=== PATIENT | male | born 1960 | race Caucasian/White ===

== ENCOUNTER 2023-07-15 11:05 | Day surgery (SDC) | payer OTHER ==
[~2023-07-15] VITALS: Ht 172.7 cm; Wt 110.7 kg
[~2023-07-15 11:05] MED LIST: ATOR40TA75 PO; CYCL-707 PO; METF10004 PO; THERTAB52 PO
[2023-07-15] MEDS: NS 1,000 ML IV ONE (12:10)
[2023-07-15] MEDS ORDERED: propofoL 200 MG/20 ML VIAL As Ordered ONE (12:20)
[2023-07-15] MEDS ORDERED: LIDOCAINE 2% 100MG/5ML SDV (FOR ANES.) As Ordered ONE (12:35)
[2023-07-15 12:44] VITALS: TEMP 96.5
[2023-07-15 13:00] VITALS: BP 128/81; O2SAT 95
== END 2023-07-15 13:09 | disposition home or self-care (01) ==
LOC: M OPP 11:05
PROVIDERS: ATTEND Internal Medicine Gastroenterology
DX: Z12.11 Encounter for screening for malignant neoplasm of colon (principal); Z12.12 Encounter for screening for malignant neoplasm of rectum; D12.2 Benign neoplasm of ascending colon; K64.0 First degree hemorrhoids; E78.00 Pure hypercholesterolemia, unspecified; E11.9 Type 2 diabetes mellitus without complications; Z79.84 Long term (current) use of oral hypoglycemic drugs; Z79.899 Other long term (current) drug therapy